=== PATIENT | male | born 1955 | race Caucasian/White ===

== ENCOUNTER 2016-08-03 08:13 | Outpatient (CLI) | payer OTHER ==
[2016-08-03 10:15] LABS: #Basophils 0.1 thou/uL (0.0-0.2); #Eosinphils 0.2 thou/uL (0.0-0.7); #Lymphocytes 1.4 thou/uL (1.20-3.40); #Monocytes 0.4 thou/uL (0.11-0.59); #Neutrophils 3.8 thou/uL (1.40-6.50); %Basophils 1.3 % (0.0-1.0); %Eosinophils 3.2 % (0.0-10.0); %Lymphocytes 23.9 % (21.0-51.0); %Monocytes 7.5 % (0.0-10.0); Mean Corpuscular HGB CONC 34.6 g/dL (32.0-36.0); Mean Corpuscular Hemoglobin 31.2 pg (27.0-31.0); Mean Corpuscular Volume 90.2 fl (80.0-94.0); Mean Platelet Volume 8.5 fL (7.4-10.4); Platelet Count 149 thou/uL (130-400); RBC Distribution Width 11.6 % (11.5-14.5); Red Blood Cell (RBC) Count 4.49 mill/uL (4.70-6.10); White Blood Cell (WBC) Count 5.9 thou/uL (4.8-10.8)
[2016-08-03 10:24] LABS: ALT (SGPT) 42 U/L (0-55); AST (SGOT) 19 U/L (5-34); Albumin 4.2 g/dL (3.5-5.0); Alkaline Phosphatase 44 U/L (40-150); Anion Gap 14 mmol/L (10-20); BUN (Urea Nitrogen) 17 mg/dL (8.4-25.7); Bilirubin, Total 0.6 mg/dL (0.2-1.2); Calc. Creatinine Clearance 0 mL/min (70-130); Carbon Dioxide 27 mmol/L (22-29); Chloride 105 mmol/L (98-107); Estimated GFR-MDRD 77; Glucose 117 mg/dL (70-105); Potassium 3.9 mmol/L (3.5-5.1); Protein, Total 6.2 g/dL (6.0-8.3); Sodium 142 mmol/L (136-145)
== END 2016-08-03 08:14 ==
LOC: MADLABBHPM 08:13
PROVIDERS: ATTEND Family Medicine
DX: R41.3 Other amnesia (principal)
CPT/HCPCS: 80053; 82607; 84443; 85025

== ENCOUNTER 2016-08-13 07:42 | Outpatient (CLI) | payer OTHER ==
--- NOTE | 2016-08-13 08:52 | CT ---
NONCONTRAST CT OF THE BRAIN: History: Memory loss and teniasis for 6-7 months. FINDINGS: No acute infarct, hemorrhage, or hydrocephalus is present. The septum pellucidum and third ventricle are midline. The visualized bony contours of the IACs appear within normal limits. Mastoid air cell s are clear. Paranasal sinuses demonstrate minimal mucosal thickening of the ethmoid air cells. IMPRESSION: 1. No acute intracranial abnormality. 2. With complains of tinnitus and memory loss, MRI utilizing IAC protocol may be helpful. POS: [facility]
== END 2016-08-13 07:43 | disposition home or self-care (01) ==
LOC: MADCT 07:42
PROVIDERS: ATTEND Family Medicine
DX: R41.3 Other amnesia (principal); H93.19 Tinnitus, unspecified ear
CPT/HCPCS: 70450

== ENCOUNTER 2017-05-03 15:39 | Outpatient (CLI) | payer OTHER ==
--- NOTE | 2017-05-03 16:10 | RAD ---
FOUR VIEWS RIGHT KNEE SERIES: Clinical history: Popping sensation, pain. FINDINGS: There is mild joint capsular distention. Mild osteoarthritis is present. No fracture or dislocation. IMPRESSION: 1. Joint capsular distention within the suprapatellar bursa. 2. No acute fracture. 3. Mild osteoarthritis. POS: [facility]
== END 2017-05-03 15:40 | disposition home or self-care (01) ==
LOC: MADRAD 15:39
PROVIDERS: ATTEND Family Medicine
DX: M25.561 Pain in right knee (principal); M19.90 Unspecified osteoarthritis, unspecified site; M25.861 Other specified joint disorders, right knee

== ENCOUNTER 2018-09-02 11:44 | Outpatient (CLI) | payer OTHER | END 2018-09-02 11:45 | disposition home or self-care (01) | LOC: MADEKG 11:44 | PROVIDERS: ATTEND Family Medicine | DX: R60.0 Localized edema (principal); R06.02 Shortness of breath | CPT/HCPCS: 93005; 93010 ==

== ENCOUNTER 2019-01-06 07:24 | Emergency (ER) | payer OTHER ==
[2019-01-06] MEDS ORDERED: methylPREDNISolone Sod Succ/PF 125 MG/2 ML VIAL ONE (07:45)
[2019-01-06 08:21] LABS: Hemoglobin 13.3 g/dL (14.0-18.0); Mean Corpuscular HGB CONC 33.6 g/dL (32.0-36.0); Mean Corpuscular Hemoglobin 29.3 pg (27.0-31.0); Mean Corpuscular Volume 87.1 fL (78.0-98.0); Mean Platelet Volume 7.2 fL (7.4-10.4); Platelet Count 163 thou/uL (130-400); RBC Distribution Width 12.9 % (11.5-14.5); Red Blood Cell (RBC) Count 4.54 mill/uL (4.70-6.10); White Blood Cell (WBC) Count 14.8 thou/uL (4.8-10.8)
[2019-01-06 08:22] LABS: #Eosinphils 0.1 thou/uL (0.0-0.7); #Lymphocytes 1.6 thou/uL (1.20-3.40); #Monocytes 1.1 thou/uL (0.11-0.59); %Basophils 0.9 % (0.0-1.0); %Eosinophils 0.2 % (0.0-10.0); %Lymphocytes 10.7 % (21.0-51.0); %Monocytes 7.3 % (0.0-10.0); %Neutrophils 80.9 % (42.0-75.0)
[2019-01-06 08:23] LABS: #Basophils 0.1 thou/uL (0.0-0.2)
[2019-01-06 08:51] LABS: ALT (SGPT) 115 U/L (8-55); AST (SGOT) 70 U/L (5-34); Albumin 4.4 g/dL (3.4-4.8); Alkaline Phosphatase 56 U/L (40-150); Anion Gap 13 mmol/L (10-20); BUN (Urea Nitrogen) 17 mg/dL (8.4-25.7); Bilirubin, Total 0.4 mg/dL (0.2-1.2); Calc. Creatinine Clearance 0 mL/min (70-130); Calcium 8.9 mg/dL (7.8-10.44); Carbon Dioxide 29 mmol/L (23-31); Chloride 101 mmol/L (98-107); Estimated GFR-MDRD Greater than 90; Globulin 2.6 g/dL (2.4-3.5); Glucose 90 mg/dL (80-115); Potassium 3.7 mmol/L (3.5-5.1); Sodium 139 mmol/L (136-145)
[2019-01-06] MEDS ORDERED: Magnesium 2 GM/50 ML BAG (IN WATER) ONE (08:59)
[2019-01-06] MEDS ORDERED: cefTRIAXone\\ROCEPHIN 1 GM VIAL ONE (08:59)
[2019-01-06] MEDS ORDERED: Sodium Chloride 0.9% 100 ML ONE (09:00)
--- NOTE | 2019-01-06 09:07 | RAD ---
PORTABLE CHEST: Date: 01/06/19 HISTORY: Dyspnea. FINDINGS: Heart size and mediastinum are within normal limits. Lungs are clear of any infiltrative process. Puneet e increased interstitial lung changes are seen. Some of this is technique related. IMPRESSION: Slightly increased interstitial lung change which may be chronic in nature. No confluent infiltrates. POS: [facility]
[2019-01-06] MEDS ORDERED: Azithromycin 500 MG VIAL ONE ×2 (10:11→10:12)
== END 2019-01-06 11:25 | disposition short-term general hospital (02) ==
LOC: MADERS 07:24
DX: J44.1 Chronic obstructive pulmonary disease with (acute) exacerbation (principal); I10 Essential (primary) hypertension; F17.200 Nicotine dependence, unspecified, uncomplicated; Z79.899 Other long term (current) drug therapy; Z79.82 Long term (current) use of aspirin; Z79.51 Long term (current) use of inhaled steroids
CPT/HCPCS: 71045; 80053; 83880; 84484; 85025; 93005; 94660; 96365; 96367; 96375; J0456; J0696; J2930; J3475; J3490; J7050

== ENCOUNTER 2019-03-06 09:13 | Outpatient (CLI) | payer OTHER ==
--- NOTE | 2019-03-06 09:49 | RAD ---
CHEST 1 VIEW: TWO VIEWS LEFT RIBS: HISTORY: Fall. Pain.. FINDINGS: ONE VIEW CHEST: Normal cardiac silhouette. Lungs and pleural spaces are clear. No pneumothorax or osseous abnormaliti es. TWO VIEWS LEFT RIBS: No fracture, cortical irregularity or periosteal reaction. IMPRESSION: 1. No acute cardiopulmonary process. 2. No evidence of a left rib fracture. Transcribed Date/Time: 03/06/2019 10:10 AM
== END 2019-03-06 09:14 | disposition home or self-care (01) ==
LOC: MADRAD 09:13
PROVIDERS: ATTEND Family Medicine
DX: R07.81 Pleurodynia (principal)

== ENCOUNTER 2019-12-08 10:02 | Outpatient (CLI) | payer OTHER ==
--- NOTE | 2019-12-08 10:37 | RAD ---
2 VIEWS CHEST: Date: 12/08/2019 COMPARISON: 03/06/2019. HISTORY: Chest pain FINDINGS: Two views of the chest show normal sized cardiomediastinal silhouette. There is no evidence of consol idation, mass, or pleural effusion. Degenerative changes are seen in the spine. IMPRESSION: No evidence of acute cardiopulmonary disease. POS: [facility]
== END 2019-12-08 10:03 | disposition home or self-care (01) ==
LOC: MADRAD 10:02
PROVIDERS: ATTEND Family Medicine
DX: J44.9 Chronic obstructive pulmonary disease, unspecified (principal)
CPT/HCPCS: 71046

== ENCOUNTER 2021-12-04 10:47 | Outpatient (CLI) | payer OTHER ==
[2021-12-04 11:02] LABS: #Basophils 0.2 thou/uL (0.0-0.2); #Eosinphils 0.4 thou/uL (0.0-0.7); #Lymphocytes 1.6 thou/uL (1.20-3.40); #Monocytes 0.7 thou/uL (0.11-0.59); #Neutrophils 6.3 thou/uL (1.40-6.50); %Basophils 1.7 % (0.0-1.0); %Eosinophils 4.1 % (0.0-10.0); %Lymphocytes 17.5 % (21.0-51.0); %Neutrophils 68.7 % (42.0-75.0); Hemoglobin 15.2 g/dL (14.0-18.0); Mean Corpuscular Hemoglobin 29.2 pg (27.0-31.0); Mean Corpuscular Volume 88.3 fL (78.0-98.0); Mean Platelet Volume 10.1 fL (7.4-10.4); Platelet Count 165 thou/uL (130-400); RBC Distribution Width 11.9 % (11.5-14.5); Red Blood Cell (RBC) Count 5.19 mill/uL (4.70-6.10); White Blood Cell (WBC) Count 9.2 thou/uL (4.8-10.8)
[2021-12-04 11:31] LABS: ALT (SGPT) 25 U/L (8-55); AST (SGOT) 17 U/L (5-34); Albumin 4.3 g/dL (3.4-4.8); Alkaline Phosphatase 54 U/L (40-110); Anion Gap 13 mmol/L (10-20); BUN (Urea Nitrogen) 13 mg/dL (8.4-25.7); Bilirubin, Total 0.3 mg/dL (0.2-1.2); Calc. Creatinine Clearance 0 mL/min (70-130); Calcium 9.8 mg/dL (7.8-10.44); Carbon Dioxide 32 mmol/L (23-31); Cardiac Risk 3.8 (Less than 4.5); Chloride 99 mmol/L (98-107); Cholesterol 155 mg/dl (< 200 Desired); Estimated GFR 99; Globulin 2.7 g/dL (2.4-3.5); Glucose 108 mg/dL (80-115); HDL Cholesterol 41 mg/dL (>60 Neg Risk); LDL Cholesterol, Calculated 95 mg/dL; Potassium 4.3 mmol/L (3.5-5.1); Sodium 140 mmol/L (136-145); Triglycerides 95 mg/dL (Less than 150)
== END 2021-12-04 10:48 | disposition home or self-care (01) ==
LOC: MADLABBHPM 10:47 → MADLAB 10:48
PROVIDERS: ATTEND Family Medicine
DX: E78.2 Mixed hyperlipidemia (principal); E55.9 Vitamin D deficiency, unspecified; I10 Essential (primary) hypertension
CPT/HCPCS: 80053; 80061; 82306; 85025

== ENCOUNTER 2022-05-21 16:13 | Emergency (ER) | payer MEDICARE, OTHER ==
[2022-05-21] MEDS ORDERED: Fluorescein Opthalmic Strip ONE (16:34)
[2022-05-21] MEDS ORDERED: Ipratropium/Albuterol 3 ML NEB ONE (16:34)
[2022-05-21] MEDS ORDERED: Tetracaine 0.5% PF 4 ML BOT ONE (16:34)
[2022-05-21] MEDS ORDERED: methylPREDNISolone Sod Succ/PF 125 MG/2 ML VIAL ONE (16:42)
== END 2022-05-21 17:30 | disposition home or self-care (01) ==
LOC: MADERS 16:13
DX: T15.02XA Foreign body in cornea, left eye, initial encounter (principal); J44.1 Chronic obstructive pulmonary disease with (acute) exacerbation; I10 Essential (primary) hypertension; F17.210 Nicotine dependence, cigarettes, uncomplicated
CPT/HCPCS: 71045; 93005; 96374; J2930; J7620

== ENCOUNTER 2022-06-01 15:13 | Emergency (ER) | payer MEDICARE, OTHER ==
[2022-06-01 15:42] LABS: #Basophils 0.2 thou/uL (0.0-0.2); #Eosinphils 0.3 thou/uL (0.0-0.7); #Lymphocytes 2.2 thou/uL (1.20-3.40); #Monocytes 0.9 thou/uL (0.11-0.59); #Neutrophils 9.3 thou/uL (1.40-6.50); %Basophils 1.5 % (0.0-1.0); %Eosinophils 2.2 % (0.0-10.0); %Lymphocytes 17.3 % (21.0-51.0); %Monocytes 6.8 % (0.0-10.0); %Neutrophils 72.2 % (42.0-75.0); Mean Corpuscular HGB CONC 34.3 g/dL (32.0-36.0); Mean Corpuscular Hemoglobin 29.3 pg (27.0-31.0); Mean Corpuscular Volume 85.4 fl (78.0-98.0); Mean Platelet Volume 7.8 fL (7.4-10.4); Platelet Count 227 10x3/uL (130-400); RBC Distribution Width 11.5 % (11.5-14.5); Red Blood Cell (RBC) Count 4.77 mill/uL (4.70-6.10); White Blood Cell (WBC) Count 12.9 10x3/uL (4.8-10.8)
[2022-06-01] MEDS ORDERED: Sodium Chloride 0.9% 100 ML ONE (15:45)
[2022-06-01] MEDS ORDERED: Azithromycin 500 MG VIAL ONE (15:45)
[2022-06-01] MEDS ORDERED: Sodium Chloride 0.9% 250 ML 250 ML ONE (15:45)
[2022-06-01] MEDS ORDERED: Ipratropium Bromide 2.5 ml Neb ONE ×2 (15:46→17:02)
[2022-06-01] MEDS ORDERED: Albuterol 2.5 MG/0.5 ML NEB ONE ×2 (15:46→17:02)
[2022-06-01] MEDS ORDERED: methylPREDNISolone Sod Succ/PF 125 MG/2 ML VIAL ONE (15:46)
[2022-06-01] MEDS ORDERED: cefTRIAXone\\ROCEPHIN 2 GM VIAL ONE (15:46)
[2022-06-01 15:58] LABS: ALT (SGPT) 16 U/L (8-55); AST (SGOT) 12 U/L (5-34); Alkaline Phosphatase 55 U/L (40-110); Anion Gap 13 mmol/L (10-20); BUN (Urea Nitrogen) 11 mg/dL (8.4-25.7); Bilirubin, Total 0.7 mg/dL (0.2-1.2); Calc. Creatinine Clearance 0 mL/min (70-130); Calcium 9.4 mg/dL (7.8-10.44); Carbon Dioxide 30 mmol/L (23-31); Chloride 97 mmol/L (98-107); Estimated GFR 99; Globulin 2.4 g/dL (2.4-3.5); Glucose 91 mg/dL (80-115); Potassium 3.5 mmol/L (3.5-5.1); Protein, Total 6.4 g/dL (5.8-8.1); Sodium 136 mmol/L (136-145)
[2022-06-01 16:00] LABS: Base Excess-Venous 7.9 mmol/L (-2.0 to 3.0); Bicarbonate (HCO3v) 34.8 mmol/L (22.0-28.0); Calcium, Ionized 1.17 mmol/L (1.15-1.33); Chloride 94 mmol/L (98-107); Hemoglobin - Calc 15.3 g/dL (14.0-18.0); Potassium 3.3 mmol/L (3.5-5.1); Sodium 138 mmol/L (138-145); T. Carbon Dioxide 36.5 mmol/L (22.0-28.0)
[2022-06-01 16:19] LABS: INR-International Normal Ratio 1.1; Prothrombin Time 14.5 sec (12.0-14.7)
[2022-06-01 16:20] LABS: PTT 37.6 sec (22.9-36.1)
[2022-06-01 16:22] LABS: D-Dimer Test 0.27 *mcg/mL (0.27-0.43)
[2022-06-01] MEDS ORDERED: Ipratropium/Albuterol 3 ML NEB ONE (18:37)
== END 2022-06-01 19:54 | disposition home or self-care (01) ==
LOC: MADERS 15:13
DX: J44.1 Chronic obstructive pulmonary disease with (acute) exacerbation (principal); R60.0 Localized edema; F17.210 Nicotine dependence, cigarettes, uncomplicated
CPT/HCPCS: 71046; 80053; 82330; 82803; 83605; 83880; 84484; 85025; 85379; 85610; 85730; 87040; 93005; 94760; 96365; 96367; 96375; J0696; J2930; J7050; J7611; J7620

== ENCOUNTER 2022-11-11 14:48 | Outpatient (CLI) | payer MEDICARE, OTHER | END 2022-11-11 14:49 | disposition home or self-care (01) | LOC: MADRAD 14:48 | PROVIDERS: ATTEND Internal Medicine | DX: J44.9 Chronic obstructive pulmonary disease, unspecified (principal); I70.0 Atherosclerosis of aorta; M47.814 Spondylosis without myelopathy or radiculopathy, thoracic region; J98.4 Other disorders of lung | CPT/HCPCS: 71046 ==

== ENCOUNTER 2022-11-23 14:22 | Outpatient (CLI) | payer MEDICARE, OTHER ==
[2022-11-23 14:48] LABS: #Basophils 0.1 thou/uL (0.0-0.2); #Eosinphils 0.4 thou/uL (0.0-0.7); #Monocytes 0.5 thou/uL (0.11-0.59); #Neutrophils 5.5 thou/uL (1.40-6.50); %Basophils 1.4 % (0.0-1.0); %Eosinophils 4.4 % (0.0-10.0); %Lymphocytes 23.3 % (21.0-51.0); %Monocytes 5.4 % (0.0-10.0); %Neutrophils 65.6 % (42.0-75.0); Hematocrit 42.2 % (42.0-52.0); Hemoglobin 14.1 g/dL (14.0-18.0); Mean Corpuscular HGB CONC 33.4 g/dL (32.0-36.0); Mean Corpuscular Hemoglobin 29.3 pg (27.0-31.0); Mean Corpuscular Volume 87.9 fl (78.0-98.0); Mean Platelet Volume 8.7 fL (7.4-10.4); Platelet Count 215 10x3/uL (130-400); RBC Distribution Width 12.5 % (11.5-14.5); White Blood Cell (WBC) Count 8.5 10x3/uL (4.8-10.8)
[2022-11-23 15:20] LABS: Anion Gap 14 mmol/L (10-20); BUN (Urea Nitrogen) 11 mg/dL (8.4-25.7); Calc. Creatinine Clearance 0 mL/min (70-130); Calcium 9.1 mg/dL (7.8-10.44); Carbon Dioxide 27 mmol/L (23-31); Chloride 103 mmol/L (98-107); Estimated GFR 95; Glucose 151 mg/dL (80-115); Potassium 3.3 mmol/L (3.5-5.1); Sodium 141 mmol/L (136-145)
== END 2022-11-23 14:23 | disposition home or self-care (01) ==
LOC: MADLAB 14:22
PROVIDERS: ATTEND Nurse Practitioner Family
DX: R07.9 Chest pain, unspecified (principal)
CPT/HCPCS: 36415; 80048; 85025

== ENCOUNTER 2022-12-11 11:42 | Outpatient (CLI) | payer MEDICARE, OTHER | END 2022-12-11 11:43 | disposition home or self-care (01) | LOC: MADRAD 11:42 | PROVIDERS: ATTEND Nurse Practitioner Family | DX: R35.0 Frequency of micturition (principal) | CPT/HCPCS: 74018 ==

== ENCOUNTER 2022-12-22 11:40 | Outpatient (CLI) | payer MEDICARE, OTHER | END 2022-12-22 11:41 | disposition home or self-care (01) | LOC: MADRAD 11:40 | PROVIDERS: ATTEND Internal Medicine | DX: R06.02 Shortness of breath (principal); M51.36 Other intervertebral disc degeneration, lumbar region | CPT/HCPCS: 72100 ==

== ENCOUNTER 2023-02-16 14:10 | Outpatient (CLI) | payer MEDICARE, OTHER | END 2023-02-16 14:11 | disposition home or self-care (01) | LOC: MADRAD 14:10 | PROVIDERS: ATTEND Internal Medicine | DX: R06.02 Shortness of breath (principal); M47.812 Spondylosis without myelopathy or radiculopathy, cervical region | CPT/HCPCS: 72050 ==

== ENCOUNTER 2025-04-03 14:55 | Outpatient (CLI) | payer MEDICARE | END 2025-04-03 14:56 | disposition home or self-care (01) | LOC: MADLAB 14:55 | PROVIDERS: ATTEND Family Medicine | DX: M25.511 Pain in right shoulder (principal) ==